=== PATIENT | female | born 2000 | race Caucasian/White ===

== ENCOUNTER 2020-02-16 07:40 | Outpatient (REF) | payer OTHER, SELFPAY | END 2020-02-16 07:41 | disposition home or self-care (01) | LOC: HO.WFDLDS 07:40 | PROVIDERS: Visit Provider Internal Medicine | DX: Z20.828 Contact with and (suspected) exposure to other viral communicable diseases (principal) | CPT/HCPCS: 87635 ==

== ENCOUNTER 2020-03-15 07:39 | Outpatient (REF) | payer OTHER, SELFPAY | END 2020-03-15 07:40 | disposition home or self-care (01) | LOC: HO.WFDLDS 07:39 | PROVIDERS: Visit Provider Internal Medicine | DX: Z20.828 Contact with and (suspected) exposure to other viral communicable diseases (principal) | CPT/HCPCS: C9803; U0003 ==

== ENCOUNTER 2020-05-18 07:35 | Outpatient (REF) | payer OTHER, SELFPAY | END 2020-05-18 07:36 | disposition home or self-care (01) | LOC: HO.WFDLDS 07:35 | PROVIDERS: Visit Provider Internal Medicine | DX: Z20.822 Contact with and (suspected) exposure to COVID-19 (principal) | CPT/HCPCS: 36415; C9803; U0003 ==